=== PATIENT | female | born 1960 | race Two or more races ===

== ENCOUNTER 2019-07-17 15:37 | Emergency (ER) | payer MEDICAID, OTHER ==
[~2019-07-17] VITALS: Ht 154.9 cm; Wt 71.2 kg
[~2019-07-17 15:37] MED LIST: HYDR25TA4 PO; LISI-646 PO; NITR0.4S31 SL
[2019-07-17] MEDS ORDERED: cloNIDine HCL 0.1 MG TAB ONE ×2 (15:49→19:18)
[2019-07-17] MEDS ORDERED: cloNIDine HCL 0.1 MG TAB PO ONE ×2 (16:00→19:30)
[2019-07-17 17:09] LABS: Basophils # (auto) 0.1 uL; Basophils % (auto) 0.8 % (0.0-2.0); Eosinophils # (auto) 0.2 uL; Hematocrit 48.3 % (36.0-46.0); Hemoglobin 16.2 g/dL (12.2-16.2); Mean Corpuscular Hemoglobin 31.8 pg (28.0-32.0); Mean Corpuscular Hgb Conc. 33.6 g/dL (32.0-36.0); Mean Corpuscular Volume 94.7 fL (80.0-100.0); Monocytes # (auto) 0.6 uL; Neutrophils # (auto) 4.1 uL; Neutrophils % (auto) 52.2 % (37.0-80.0); Nucleated Red Blood Cells % 0.2 %; Platelet Count (auto) 216 10^3/uL (140-450); Red Cell Distribution Width 13.9 % (11.8-14.3); White Blood Cell 7.9 10^3/uL (4.4-10.8)
[2019-07-17 17:28] LABS: Albumin 3.6 g/dL (3.4-5.0); Anion Gap 8 (5-15); Blood Urea Nitrogen 19 mg/dL (7-18); Calcium 8.2 mg/dL (8.5-10.1); Carbon Dioxide 21 mmol/L (21-32); Chloride 110 mmol/L (98-107); Glucose 93 mg/dL (74-106); Magnesium 2.4 mg/dL (1.6-2.6); Potassium 4.4 mmol/L (3.5-5.1); Sodium 139 mmol/L (136-145)
[2019-07-17 17:35] LABS: Alanine Aminotransferase 68 U/L (13-56); Alkaline Phosphatase 111 U/L (45-117); Aspartate Aminotransferase 49 U/L (15-37); BUN/Creatinine Ratio 15.3; Bilirubin, Total 0.3 mg/dL (0.2-1.0); GFR African American 57 mL/min; GFR Non-African American 47 mL/min; Total Protein 8.1 g/dL (6.4-8.2)
[2019-07-18] MEDS ORDERED: NITROGLYCERIN 0.4 MG SL TAB SL ONE (07:15)
[2019-07-18] MEDS ORDERED: ASPirin 81 mg TAB PO ONE (07:15)
[2019-07-18 08:02] VITALS: BP 131/82
== END 2019-07-18 08:07 | disposition home or self-care (01) ==
LOC: ER 15:37
DX: R07.89 Other chest pain (principal); I25.10 Atherosclerotic heart disease of native coronary artery without angina pectoris; I11.0 Hypertensive heart disease with heart failure; I50.9 Heart failure, unspecified; J44.9 Chronic obstructive pulmonary disease, unspecified; F17.210 Nicotine dependence, cigarettes, uncomplicated; Z79.899 Other long term (current) drug therapy; Z90.710 Acquired absence of both cervix and uterus; Z98.61 Coronary angioplasty status
CPT/HCPCS: 36415; 80053; 83735; 84484; 85025; 93005